=== PATIENT | male | born 1970 | race Caucasian/White ===

== ENCOUNTER 2023-03-04 13:38 | Outpatient (CLI) | payer MEDICAID ==
--- NOTE | 2023-03-04 14:23 | Sleep Patient Instructions ---
Sleep Center Visit Summary - Patient Visit Information Reason for Visit: Initial consult with patient who is on BIPAP - Patient Instructions Additional Instructions: You will continue with CPAP therapy with pressure set at 20/10 cmH2O with 4 cmH2O pressure support. A supply prescription will be updated with your DME. We encourage you to continue to try to lose weight. Please follow up with the sleep care office in 1 year. - Clinic Information Contact: [facility] [address] [place] [address] [email or web address] T: [phone]
--- NOTE | 2023-03-04 14:27 | SLEEP CARE CONSULTATION ---
Information from patient questionnaire entered by Den Major. I have reviewed and concur with the information entered by Den Major. This document represents the service I personally performed and the decisions made by me, Taya Crawford ARNP. History of Present Illness Service Date and Time: 03/04/2023 1338 Reason for Visit: New patient, Previously diagnosed sleep apnea, sleep apnea on CPAP therapy (on BIPAP) Chief Complaint: reports: Other ([employer]) Usual bedtime: 2AM Time it takes to fall asleep: 30MIN Snores at night: Yes (sleeps alone, don't know) Observed to quit breathing while asleep: Yes Number of times waking at night: 0-1 Reasons for waking at night: reports: Bathroom. denies: Choking, Gasping for air Toss, Turn, or Twitch while sleeping: No (don't know) Recalls having dreams: Yes Usually gets out of bed at: 11AM Feels refreshed in the morning: Yes Morning headache: Yes (2-3 times a month) Sleepy or fatigued during the day: Yes Ever fallen asleep while driving: Yes (none since using PAP machine) Takes day naps: Yes Prior sleep studies: Yes Year and Where: 2013 [facility] Additional HPI information: MORELIA MOULTON was previously diagnosed to have extremely severe, AHI 135.7, obstructive sleep apnea-hypopnea syndrome as seen in split night sleep study dated 10/19/2013 at [facility] and comes in today to establish care for BIPAP therapy. - Parasomnia Symptoms Ever been unable to move upon waking from sleep: No Walks in sleep: No Talks in sleep: No Ever acted out dreams in sleep: No Ever felt weak in the knees when startled or emotional: No Bothered by creepy, crawly, restless sensations in legs: No Problems with memory or concentration: Yes (little bit) CPAP Compliance Data - Data Reviewed with Patient Average duration of nightly device use: 9 hours 19 mins Compliance rate %: 97 (89/90 days used) Current pressure setting (cmH2O): 20/10 with 4 pressure support Average residual AHI: 0.3 Central apnea: 0 Obstructive apnea: 0.1 Hypopnea: 0.3 Average large leak: 8.8 LPM Compliance data discussion: He is getting his supplies from [employer]. He has a ResMed AirCurve 10 VAuto that was received 07/2021. He is using a full face mask, ResMed Airfit F20, medium cushion. He changes his cushion about every 6 months. Subjective Patient concerns: reports: air blowing in eyes (air leaking when mask needs changed), dry mouth, nose, throat (dry mouth occasionally). denies: aerophagia, mask discomfort, mask leak noise, condensation in mask/hose, nasal congestion, epistaxis Observed to snore while using device: No Current pressure setting perceived as: comfortable On therapy, patient: reports: sleeping better, awakening more refreshed, being more awake and alert during the day, more rested overall. denies: drowsiness while driving Initial Banks Sleepiness Scale score: 5 (03/04/23) Past Medical History Past Medical History: reports: Hypertension, Diabetes, Insulin resistance, Other (HYPERLIPIDEMIA; Myasthenia gravis, cirrhosis) Social History The patient's occupation is a NOT EMPLOYED. Patient is Single and lives in [place]. Have you smoked in the past 12 months: Yes Cigarettes per day (20/pack): 10 Years of smokin Smoking Pack Years: 15.0 Alcohol use: No Caffeine use: Yes Caffeine amount and frequency: 4-6 sodas/coffee daily Family History Family history of sleep disordered breathing: Yes Family Hx Sleep Apnea: Father: Snoring, Sleep apnea - Treated Allergies and Home Medications Known drug allergies: No Drug allergies reviewed: Yes Home medication list reviewed: Yes (see updated list in EMR) Review of Systems Weight loss over past 5 years: 50, when in crisis for myasthenia gravis Cardiovascular: reports: high blood pressure, leg or foot swelling Respiratory: reports: shortness of breath, sputum production Neurological: reports: headaches Ear/Nose/Throat: reports: nose bleeds, dry mouth/throat. denies: tonsillectomy Endocrine: reports: sluggishness, excessive thirst Musculoskeletal: reports: joint pain, neck pain, back pain, muscle pain or cramping Physical Exam Vital signs obtained and entered by: DEN Barr MA Blood Pressure: 128/72 (LEFT ARM) Cuff size: long Heart Rate: 86 O2 Saturation: 98 Height: 5 ft 5 in Weight: 295 lb 3.2 oz Body Mass Index: 49.1 BMI Classification: Morbidly Obese Neck circumference: 22 Heart: regular rate and rhythm Lungs: clear bilaterally Impression and Plan 1. Obstructive Sleep Apnea-Hypopnea Syndrome, extremely severe, with good treatment compliance and good apnea control. On BIPAP therapy, the patient has better sleep quality and is more rested overall. He states he cannot sleep without his machine. He denies any major issues with using the PAP device. Patient has significant improvement of their sleep apnea and is satisfied with current CPAP therapy. I will update his prescription with his DME for his supplies. Patient's apnea severity and rationale for treatment to reduce apnea, improve sleep quality and reduce cardiovascular and cerebrovascular events was reviewed. I also reviewed the benefit of consistent device use of BIPAP for hypertension, diabetes. 2. Obesity, unspecified. Currently patients BMI is 49.1. Obesity increases the risk of apnea, BIPAP pressure requirements and overall health risks especially cardiovascular and diabetes. Thus patient is advised to lose weight. * Continue BIPAP pressure at 20/10 cmH2O with 4 cmH2O pressure support * Update supplies prescription * Notify me if snoring with mask or feeling that the pressure is too much or too little * Attempt to lose weight * Call this office if any problems using BIPAP * Return for follow up in 1 year, or sooner if concerns arise Counseling Topics: Spare mask, Weight loss health impact Visit Type: In Office Time Spent with Patient (minutes): 30 Provider Statement: I spent 100% of the Face to Face Visit with the patient with greater than 50% spent counseling the patient and coordination of care.
[2023-03-04 14:28] VITALS: BP 128/72
== END 2023-03-04 13:39 | disposition home or self-care (01) ==
LOC: SC 13:38
PROVIDERS: ATTEND Nurse Practitioner Family
DX: G47.33 Obstructive sleep apnea (adult) (pediatric) (principal); E66.01 Morbid (severe) obesity due to excess calories; Z68.42 Body mass index [BMI] 45.0-49.9, adult
CPT/HCPCS: 99203; 99212

== ENCOUNTER 2024-03-10 13:56 | Outpatient (CLI) | payer MEDICAID ==
--- NOTE | 2024-03-10 14:58 | Sleep Patient Instructions ---
Sleep Center Visit Summary - Patient Visit Information Reason for Visit: Annual follow-up - Patient Instructions Additional Instructions: You will continue with BiPAP therapy with pressure set at 20/10 cmH2O. A supply prescription will be updated with your DME. We encourage you to continue to try to lose weight. Please follow up with the sleep care office in 1 year. - Clinic Information Contact: [facility] [address] [place] [address] [email or web address] T: [phone]
--- NOTE | 2024-03-10 15:00 | SLEEP CARE CONSULTATION ---
Information from patient questionnaire entered by Den Major. I have reviewed and concur with the information entered by Den Major. This document represents the service I personally performed and the decisions made by me, Taya Crawford ARNP. History of Present Illness Service Date and Time: 03/10/2024 1356 Previous diagnosis: Extremely Severe, Obstructive Sleep Apnea-Hypopnea Syndrome AHI: 135.7 (on 10/19/2013) Reason for follow up: annual (LAST SEEN 02/2023) Equipment type: CPAP (RESMED AirCurve 10; s/u 07/17/2021) Equipment obtained from: [employer] (getting supplies) Mask style: Full face Mask brand: Resmed (AirFit F20, medium) Backup mask available: No (will keep old mask when replaced) Last cushion change: couple months Prior sleep studies: Yes Year and Where: 2013 [facility] HPI additional information: MORELIA MOULTON was diagnosed to have extremely severe, AHI 135.7, obstructive sleep apnea-hypopnea syndrome and returned today for BIPAP therapy annual follow-up. Sleep Study - Results Prior sleep studies: Yes Year and Where: 2013 [facility] CPAP Compliance Data - Data Reviewed with Patient Average duration of nightly device use: 10 HRS 27 MINS Compliance rate %: 97 (03/05/23-03/03/24; 355/365 days used) Current pressure setting (cmH2O): 20/10 Average residual AHI: 0.2 Central apnea: 0 Obstructive apnea: 0 Average large leak: 6.4 L/min Subjective Patient concerns: denies: aerophagia, mask discomfort, air blowing in eyes, mask leak noise, condensation in mask/hose, nasal congestion, dry mouth, nose, throat, epistaxis Observed to snore while using device: No Current pressure setting perceived as: comfortable On therapy, patient: reports: sleeping better, being more awake and alert during the day, more rested overall. denies: drowsiness while driving Initial [place] Sleepiness Scale score: 5 (03/04/23) Current [place]de Sleepiness Scale score: 5 (03/10/24) Allergies and Home Medications Known drug allergies: No Drug allergies reviewed: Yes Home medication list reviewed: Yes (no changes) Allergy and home medication list: Allergies No Known Drug Allergies Allergy (Verified 03/04/24 13:02) Review of Systems Review of systems same as previous: Yes (NO CHANGE) Physical Exam Vital signs obtained and entered by: DEN Barr MA Blood Pressure: 124/82 (RIGHT ARM) Cuff size: long Heart Rate: 96 O2 Saturation: 98 Height: 5 ft 5 in Weight: 273 lb Weight change since last visit: 22 lb loss Body Mass Index: 45.4 BMI Classification: Morbidly Obese Impression and Plan 1. Obstructive Sleep Apnea-Hypopnea Syndrome, extremely severe, with good treatment compliance and good apnea control. On BiPAP therapy, the patient has better sleep quality and is more rested overall. Patient has significant improvement of their sleep apnea and is satisfied with current CPAP therapy. Patient denies problems with oral dryness, nasal congestion, epistaxis, skin irritation or aerophagia. Patient's apnea severity and rationale for treatment to reduce apnea, improve sleep quality and reduce cardiovascular and cerebrovascular events was reviewed. I also reviewed the benefit of consistent device use of BiPAP for hypertension, diabetes. 2. Obesity, unspecified. Currently patients BMI is 45.4. He has lost weight. Obesity increases the risk of apnea, BiPAP pressure requirements and overall health risks especially cardiovascular and diabetes. Thus patient is advised to continue to try to lose weight. * Continue BiPAP pressure at 20/10 cmH2O with 4 cmH2O pressure support * Update supply prescription * Notify me if snoring with mask or feeling that the pressure is too much or too little * Attempt to lose weight * Call this office if any problems using BiPAP * Return for follow up in 12 months, or sooner if concerns arise Counseling Topics: Weight loss health impact Prescriptions: Device supplies Follow up with Sleep Care in: 1 year Visit Type: In Office Time Spent with Patient (minutes): 15 Provider Statement: I spent 100% of the Face to Face Visit with the patient with greater than 50% spent counseling the patient and coordination of care.
[2024-03-10 15:05] VITALS: BP 124/82; O2SAT 98
== END 2024-03-10 13:57 | disposition home or self-care (01) ==
LOC: SC 13:56
PROVIDERS: ATTEND Nurse Practitioner Family
DX: G47.33 Obstructive sleep apnea (adult) (pediatric) (principal); E66.01 Morbid (severe) obesity due to excess calories; Z68.42 Body mass index [BMI] 45.0-49.9, adult
CPT/HCPCS: 99212